=== PATIENT | male | born 1990 | race Caucasian/White ===

== ENCOUNTER 2025-03-24 01:49 | Emergency (ER) | payer MEDICAID ==
[~2025-03-24] VITALS: Ht 182.9 cm; Wt 86.5 kg
[2025-03-24 01:55] VITALS: TEMP 37; O2SAT 99
[2025-03-24] MEDS: KETOROLAC 30MG/ML VIAL IM ONE (02:24)
[2025-03-24 02:39] LABS: CLARITY URINE CLEAR (CLEAR); COLOR URINE YELLOW (YELLOW); GLUCOSE URINE NEGATIVE (NEGATIVE); KETONES URINE NEGATIVE (NEGATIVE); LEUKOCYTE ESTERASE URINE 1+ (NEGATIVE); NITRITE URINE NEGATIVE (NEGATIVE); OCCULT BLOOD URINE 1+ (NEGATIVE); PH URINE 7.0 (4.5-8.0); PROTEIN URINE NEGATIVE (NEGATIVE); SPECIFIC GRAVITY URINE 1.008 (1.005-1.030); UROBILINOGEN URINE 1.0 E.U./dL (0.2-1.0)
[2025-03-24 02:55] LABS: BACTERIA URINE TRACE; SQUAMOUS EPITHELIAL CELL URINE NONE SEEN /lpf (RARE/1+)
[2025-03-24] MEDS ORDERED: IBUP-2029 MT (03:06)
[2025-03-24] MEDS ORDERED: DOXY100T28 MT (03:06)
[2025-03-24] MEDS: DOXYCYCLINE HYCLATE 100MG CAPSULE PO ONE (03:23)
[2025-03-24] MEDS: CEFTRIAXONE SODIUM 500MG VIAL IM ONE (03:23)
[2025-03-24 03:33] VITALS: BP 168/76; PULSE 77; RESP 18; O2SAT 99
== END 2025-03-24 03:36 | disposition home or self-care (01) ==
LOC: ER 01:49
DX: N50.812 Left testicular pain (principal); N45.1 Epididymitis
CPT/HCPCS: 99285; 93976; 81003; 76870; 96372; J1885; J0696